=== PATIENT | female | born 1990 | race African-American/Black ===

== ENCOUNTER 2018-10-03 09:03 | Emergency (ER) | payer OTHER ==
[~2018-10-03] VITALS: Ht 165.1 cm; Wt 68.5 kg
[2018-10-03] MEDS ORDERED: prenatal (09:10)
[2018-10-03 09:45] LABS: BASO % 0.3 % (0.0-1.0); EOS # 0.1 10^3/uL (0.0-0.50); HEMOGLOBIN 11.8 g/dl (12.0-15.5); LYMPH # 3.6 10^3/uL (1.5-6.5); LYMPH % 32.5 % (24.0-44.0); MEAN CORPUSCULAR HEMOGLOBIN 30.5 pg (27.0-33.0); MEAN CORPUSCULAR HGB CONC 32.8 g/dl (32.0-36.5); MONO # 0.5 10^3/uL (0.0-0.8); MONO % 4.4 % (0.0-5.0); NEUTROPHILS # 6.7 10^3/uL (1.8-7.7); NEUTROPHILS % 61.5 % (36.0-66.0); PLATELET COUNT, AUTOMATED 261 10^3/uL (150-450); RED BLOOD COUNT 3.87 10^6/uL (4.00-5.40); WHITE BLOOD COUNT 10.9 10^3/uL (4.0-10.0)
[2018-10-03] MEDS ORDERED: ACETAMINOPHEN TAB 650MG DOSE (2X325MG) PO ONE (09:45)
[2018-10-03] MEDS ORDERED: METOCLOPRAMIDE 10 MG TAB PO ONE (09:45)
--- NOTE | 2018-10-03 10:44 | REP ---
FIRST TRIMESTER ULTRASOUND: Real-time sonographic evaluation of the gravid uterus performed utilizing transabdominal and endovaginal technique. The uterus measures 18.4 x 9.8 x 13.8 cm. Gestational sac is seen in the endometrial canal with a mean sac diameter of 8 mm corresponding to an estimated gestational age of 5 weeks 4 days. Yolk sac is seen within the gestational sac. No pole is visualized at this time. The ovaries cannot be visualized. Large fundal fibroid measures 12.6 x 11.0 x 11.2 cm. There is no subchorionic hemorrhage. Recommend followup ultrasound in 10-14 days to document viability. Electronically Signed by Jono Aviles MD 10/03/2018 05:29 P
[2018-10-03 10:52] LABS: BLOOD UREA NITROGEN 9 MG/DL (7-18); CALCIUM LEVEL 9.3 MG/DL (8.5-10.1); CARBON DIOXIDE LEVEL 27 MEQ/L (21-32); CHLORIDE LEVEL 104 MEQ/L (98-107); CREATININE FOR GFR 0.75 MG/DL (0.55-1.30); GLOMERULAR FILTRATION RATE > 60.0 (>60); GLUCOSE, FASTING 91 MG/DL (70-100); HCG, SERUM QUANTITATIVE 7763 MIU/ML; POTASSIUM SERUM 4.1 MEQ/L (3.5-5.1); SODIUM LEVEL 137 MEQ/L (136-145)
[2018-10-03] MEDS ORDERED: REGL10TA6 PO (11:07)
[2018-10-03 11:19] VITALS: BP 98/53
--- NOTE | 2018-10-04 13:26 | ED PDOC ---
Post-Departure Follow-Up ft vicente ob faxed formal report of first trimester us for fu Kimberley Gonzalez MD Oct 04, 2018 13:25
== END 2018-10-03 11:21 | disposition home or self-care (01) ==
LOC: M ED 09:03
DX: Z32.01 Encounter for pregnancy test, result positive (principal); N93.8 Other specified abnormal uterine and vaginal bleeding; Z88.0 Allergy status to penicillin

== ENCOUNTER 2020-05-06 06:05 | Inpatient (IN) | payer OTHER ==
--- NOTE | 2020-05-01 10:49 | HPE ---
HISTORY AND PHYSICAL DATE OF ANTICIPATED ADMISSION: 05/06/2020 HISTORY OF PRESENT ILLNESS: This patient is a 30-year-old 2, para 1, who has had a longstanding history of a fibroid uterus dating back before September 2018, at which time she had a in utero. At that time, the fibroid was 12 x 11 x 11 cm. She has had progressively enlarging fibroid, back in January the fibroid was 14.5 x 11 x 13.1 cm, presently in April it is 18.5 x 11 x 13.1 cm. It is rapidly enlarging causing bladder pressure and frequency, rectal pressure, dyspareunia, discomfort, and dysmenorrhea. After discussion of management including Depot Lupron for shrinkage, but not complete resolution of the fibroid, the patient elected to have definitive surgery in the form of a myomectomy. PHYSICAL EXAMINATION: The rest of the examination is unremarkable. She is normocephalic, atraumatic. Neck with full range of motions. Pupils equal and reactive to light. Distal pulses are symmetric. No evidence of DVT, PE, or superficial phlebitis. Chest is clear bilaterally to the bases with no wheezes or rhonchi. No CVA tenderness. Abdomen soft. Four quadrant bowel sounds were noted. She has this enlarging mass, which is above her umbilicus and has multiple nodularities, which is suggested by the fibroid; although, it is fixed. No rashes, lesions, or pruritus. No arthralgias or myalgias. No complaint of joint pain. No complaint of cough, wheeze, shortness of breath, or dyspnea on exertion. She has no nausea or vomiting. She has urgency. She has frequency. She had difficulty with bowel movements all related to this enlarging fibroid. VITAL SIGNS: Presently, she is 65 inches, 166.2 pounds, temperature 95.8, blood pressure 115/58, pulse is 101. ALLERGIES: PENICILLIN in the form of swelling. MEDICATIONS: Presently taking vitamins and Tylenol on a p.r.n. basis. OB HISTORY: Last Pap smear, which was July 2019, was within normal limits. HPV was negative. Last period 03/28/2019. PLAN AND DISCUSSION: We discussed the risks and benefits of surgery including hemorrhage, infection, perforation, entry into the uterus, requiring section for issues, , uncontrolled bleeding, risk of blood transfusion, and possibly hysterectomy for life threatening bleeding, as well as adhesions postoperatively related to the myomectomy. The patient expressed understanding of the same. We had a 20 minute discussion with examination 30 minutes in total. All questions were answered. The patient signed a consent form. The surgery is booked for 05/06/2020.
[~2020-05-06] VITALS: Ht 165.1 cm; Wt 73.9 kg
[2020-05-06] VITALS (8 sets, daily range): BP systolic 106–121; BP diastolic 59–69
[~2020-05-06 06:05] MED LIST: REGL10TA6 PO; prenatal
--- OUTSIDE RECORDS SUMMARY | 2020-05-06 06:16 | CCD ---
Author Author [facility] [place] [facility] Address Unknown Phone Unavailable Support Name Relationship Address Phone GEN VALDOVINOS Next Of Kin Unknown Unavailable UE Next Of Kin Unknown Unavailable RADHA VALDOVINOS Next Of Kin [address] [place] [address] Re-disclosure Warning The records that you are about to access may contain information from federally-assisted alcohol or drug abuse programs. If such information is present, then the following federally mandated warning applies: This information has been disclosed to you from records protected by federal confidentiality rules (42 CFR part 2). The federal rules prohibit you from making any further disclosure of this information unless further disclosure is expressly permitted by the written consent of the person to whom it pertains or as otherwise permitted by 42 CFR part 2. A general authorization for the release of medical or other information is NOT sufficient for this purpose. The Federal rules restrict any use of the information to criminally investigate or prosecute any alcohol or drug abuse patient.The records that you are about to access may contain highly sensitive health information, the redisclosure of which is protected by Article 27-F of the [facility] Public Health law. If you continue you may have access to information: Regarding HIV / AIDS; Provided by facilities licensed or operated by the [facility] Office of Mental Health; or Provided by the [facility] Office for People With Developmental Disabilities. If such information is present, then the following [facility] mandated warning applies: This information has been disclosed to you from confidential records which are protected by state law. State law prohibits you from making any further disclosure of this information without the specific written consent of the person to whom it pertains, or as otherwise permitted by law. Any unauthorized further disclosure in violation of state law may result in a fine or custodial sentence or both. A general authorization for the release of medical or other information is NOT sufficient authorization for further disc losure. Insurance Providers Payer name Policy type / Coverage type Policy ID Covered alliance party ID Covered alliance party's relationship to villatoro Policy Villatoro Plan Information [facility] [id number] [facility] [id number] [facility] [id number] Spouse [id number]
[2020-05-06] MEDS ORDERED: PRENTAB9 PO (06:33)
[2020-05-06 06:56] LABS: HEMATOCRIT 39.1 % (36.0-47.0); HEMOGLOBIN 12.4 g/dl (12.0-15.5); MEAN CORPUSCULAR HEMOGLOBIN 28.4 pg (27.0-33.0); MEAN CORPUSCULAR HGB CONC 31.7 g/dl (32.0-36.5); MEAN CORPUSCULAR VOLUME 89.7 fl (80.0-96.0); PLATELET COUNT, AUTOMATED 281 10^3/uL (150-450); RED BLOOD COUNT 4.36 10^6/uL (4.00-5.40); WHITE BLOOD COUNT 11.2 10^3/uL (4.0-10.0)
[2020-05-06] MEDS ORDERED: LR 1,000 ML IV ONE (07:00)
[2020-05-06] MEDS ORDERED: ceFAZolin SOD 2 GM in IV 1 EA IV ONE (07:00)
[2020-05-06] MEDS ORDERED: ACETAMINOPHEN 650 MG SUPP PR ONE (07:00)
[2020-05-06] MEDS ORDERED: ACETAMINOPHEN 650 MG SUPP As Ordered ONE (07:14)
[2020-05-06] MEDS ORDERED: BUPIVACAINE HCL 0.5% 30 ML VIAL As Ordered ONE (07:15)
[2020-05-06] MEDS ORDERED: BUPIVACAINE HCL 0.5% 10ML VIAL As Ordered ONE (07:17)
[2020-05-06 07:18] LABS: BLOOD UREA NITROGEN 15 MG/DL (7-18); CALCIUM LEVEL 9.6 MG/DL (8.5-10.1); CARBON DIOXIDE LEVEL 28 MEQ/L (21-32); CHLORIDE LEVEL 103 MEQ/L (98-107); CREATININE FOR GFR 0.72 MG/DL (0.55-1.30); GLOMERULAR FILTRATION RATE > 60.0 (>60); GLUCOSE, FASTING 103 MG/DL (70-100); HCG, SERUM QUANTITATIVE < 1.0 MIU/ML; POTASSIUM SERUM 4.1 MEQ/L (3.5-5.1); SODIUM LEVEL 137 MEQ/L (136-145)
[2020-05-06] MEDS ORDERED: LIDOCAINE 2% 100MG/5ML SDV (FOR ANES.) As Ordered ONE (07:21)
[2020-05-06] MEDS ORDERED: ONDANSETRON 4MG/2ML VIAL As Ordered ONE (07:21)
[2020-05-06] MEDS ORDERED: MIDAZOLAM INJ 2MG/2ML VIAL (J2250 PER 1MG) As Ordered ONE (07:21)
[2020-05-06] MEDS ORDERED: ROCURONIUM BROMIDE 50 MG/5 ML VIAL As Ordered ONE (07:21)
[2020-05-06] MEDS ORDERED: fentaNYL 100 MCG/2 ML INJECTION (J3010) As Ordered ONE (07:21)
[2020-05-06] MEDS ORDERED: METOCLOPRAMIDE INJ 10MG/2ML VIAL (J2765 PER 1) As Ordered ONE (07:21)
[2020-05-06] MEDS ORDERED: propofoL 200 MG/20 ML VIAL As Ordered ONE (07:21)
[2020-05-06] MEDS ORDERED: KETOROLAC 60MG 2ML VIAL As Ordered ONE (09:11)
[2020-05-06] MEDS ORDERED: SUGAMMADEX SODIUM 500 MG/5 ML VIAL (BRIDION) As Ordered ONE (09:11)
[2020-05-06] MEDS ORDERED: dexameTHASONE 4 MG/ML 1ML VIAL (J1100 PER 1MG) As Ordered ONE (09:11)
[2020-05-06] MEDS ORDERED: HYDROmorphone HCL 2 MG/ML 1ML VIAL (J1170) As Ordered ONE (09:53)
[2020-05-06] MEDS ORDERED: oxyCODONE 5MG TAB PO PRN (10:45)
[2020-05-06] MEDS ORDERED: LR 1,000 ML IV SCH ×2 (10:45→11:00)
[2020-05-06] MEDS ORDERED: ONDANSETRON 4MG/2ML VIAL IV PRN ×2 (10:45→11:15)
[2020-05-06] MEDS ORDERED: fentaNYL 100 MCG/2 ML INJECTION (J3010) IV PRN (10:45)
[2020-05-06] MEDS ORDERED: zolPIDEM TARTRATE 5 MG TAB PO PRN (11:15)
[2020-05-06 14:40] LABS: HEMATOCRIT 32.6 % (36.0-47.0); HEMOGLOBIN 10.6 g/dl (12.0-15.5); MEAN CORPUSCULAR HEMOGLOBIN 28.9 pg (27.0-33.0); MEAN CORPUSCULAR HGB CONC 32.5 g/dl (32.0-36.5); MEAN CORPUSCULAR VOLUME 88.8 fl (80.0-96.0); PLATELET COUNT, AUTOMATED 244 10^3/uL (150-450); RED BLOOD COUNT 3.67 10^6/uL (4.00-5.40); WHITE BLOOD COUNT 16.6 10^3/uL (4.0-10.0)
[2020-05-06] MEDS: NORCO, ANEXSIA 5/325MG TABLET (HYDROcodone/ACETAMINOPHEN) PO PRN (14:47)
[2020-05-06] MEDS: ACETAMINOPH W/CODEINE #3 TAB UD PO PRN ×2 (18:56→23:34)
[2020-05-06] MEDS ORDERED: NS 1,000 ML IV SCH (19:00)
[2020-05-07 04:00] VITALS: BP 113/68
[2020-05-07] MEDS: NORCO, ANEXSIA 5/325MG TABLET (HYDROcodone/ACETAMINOPHEN) PO PRN ×2 (04:31→18:14)
[2020-05-07 08:30] VITALS: BP 117/85
[2020-05-07] MEDS: IBUPROFEN 600MG TAB PO PRN ×3 (08:40→22:16)
[2020-05-07 12:00] VITALS: BP 119/65
[2020-05-07 16:00] VITALS: BP 109/64
[2020-05-07 20:00] VITALS: BP 136/73
[2020-05-08] VITALS: BP 101/72
[2020-05-08] MEDS: NORCO, ANEXSIA 5/325MG TABLET (HYDROcodone/ACETAMINOPHEN) PO PRN ×2 (00:12→06:18)
[2020-05-08] MEDS: IBUPROFEN 600MG TAB PO PRN ×2 (03:50→10:40)
[2020-05-08 04:00] VITALS: BP 117/65
[2020-05-08] MEDS ORDERED: HYDR-3715 PO (07:41)
[2020-05-08] MEDS ORDERED: IBUP-1022 PO (07:41)
[2020-05-08 08:30] VITALS: BP 108/61
--- NOTE | 2020-05-08 11:33 | DS.PDOC ---
Discharge Summary General Date of Admission May 06, 2020 at 06:05 Date of Discharge 05/08/2020 Primary Care Physician: Delvis Baltazar MD Attending Physician: Delvis Baltazar MD Discharge Summary PROCEDURES PERFORMED DURING STAY: laparotomy myomectomy ADMITTING DIAGNOSES: 1. .uterine myoma DISCHARGE DIAGNOSES: 1. .post myomectomy COMPLICATIONS/CHIEF COMPLAINT: Fibroid Uterus. HISTORY OF PRESENT ILLNESS enlarging fibroid with cystic degeneration HOSPITAL COURSE: uneventfull DISCHARGE MEDICATIONS: Please see below.in discharge instructions ALLERGIES: Please see below.pcn ? PHYSICAL EXAMINATION ON DISCHARGE: VITAL SIGNS: Please see below. GENERAL: weelno issues HEENT: normal NECK: no jvd CARDIOVASCULAR EXAMINATION: si s2 normal no murmers RESPIRATORY EXAMINATION: clear to bases ABDOMINAL EXAMINATION: soft bowel sounds normal incision clean dry dressing EXTREMITIES: no bruits no dvt no svt SKIN: normal NEUROLOGICAL EXAMINATION: negative PSYCHIATRIC EXAMINATION: no issues LABORATORY DATA: Please see below. IMAGING: PROGNOSIS: good ACTIVITY: [As tolerated]. att DIET: [tali ] DISCHARGE PLAN: incision check 2 weeks ft drum ob 6 week post op discussion control DISPOSITION: . DISCHARGE INSTRUCTIONS: 1. .printed for patient ITEMS TO FOLLOWUP ON ON OUTPATIENT: 1. . DISCHARGE CONDITION: [Stable]. TIME SPENT ON DISCHARGE: Greater than 30 minutes . [facility] Department of Laboratories [place], [place] [address] Edward Antunez MD, Service Girl Surgical Pathology Report Name: PEDRO PABLO VALDOVINOS Unit: [id number] Spec#: [id number] Signout: 05/07/20 Patient Name: PEDRO PABLO VALDOVINOS Unit#: [id number] Spec#: [id number] Page 1 of 1 [facility] Department of Laboratories [place], [place] [address] Edward Antunez MD, Service Girl Surgical Pathology Report Patient Name: PEDRO PABLO VALDOVINOS Unit#: [id number] Spec#: [id number] Page 1 of 1 Patient Name: PEDRO PABLO VALDOVINOS : 1990 Age: 30 Sex: F Acct.#: [id number] Unit #: [id number] Location:[facility] Room:[place] [address] Submitting Doctor.: Delvis Baltazar MD Other Doctors : : : : : Specimen #: [id number] Received Date: 05/06/20 Specimen Date: 05/06/20 Reported Date: 05/07/20 FINAL DIAGNOSIS Uterine mass, myomectomy: Uterine leiomyoma with hyalinization and cystic degeneration. No evidence for malignancy. 05/07/20 - 1421 CLINICAL DIAGNOSIS Fibroid uterus GROSS DESCRIPTION Received fresh labeled uterine mass for frozen section and consists of a 15.0 x 15.0 x 10.0 cm. soft tissue mass weighing 1,200 grams, received at 9:15 AM. Serial sections show homogeneous hummel-red cut surfaces with no grossly apparent necrosis or hemorrhage. Field Service Engineer sections submitted for frozen section in three blocks and reported at 9:45 AM as leiomyoma with cystic degeneration. Additional customer care representative sections submitted in five blocks (A4-A8). -SV Final: Electronically Signed by: LINDSEY PETTY MD 05/07/20 1421 Prelim: Vital Signs/I&Os Vital Signs Date Time Temp Pulse Resp B/P (MAP) Pulse Ox O2 Delivery O2 Flow Rate FiO2 05/08/20 08:30 98.4 87 20 108/61 (77) 98 Room Air 05/06/20 11:20 2 I&O- Last 24 Hours up to 6 AM 05/08/20 06:00 Intake Total 1810 ml Output Total 1200 ml Balance 610 ml Laboratory Data CBC/BMP Item Value Date Time White Blood Count 16.6 10^3/uL H 05/06/20 1427 Red Blood Count 3.67 10^6/uL L 05/06/20 1427 Hemoglobin 10.6 g/dl L 05/06/20 1427 Hematocrit 32.6 % L 05/06/20 1427 Mean Corpuscular Volume 88.8 fl 05/06/20 1427 Mean Corpuscular Hemoglobin 28.9 pg 05/06/20 1427 Mean Corpuscular Hemoglobin Concent 32.5 g/dl 05/06/20 1427 Red Cell Distribution Width 13.3 % 05/06/20 1427 Platelet Count 244 10^3/uL 05/06/20 1427 Nucleated Red Blood Cells % (auto) 0.0 % 05/06/20 1427 White Blood Count 11.2 10^3/uL H 05/06/20 0638 Red Blood Count 4.36 10^6/uL 05/06/20 0638 Hemoglobin 12.4 g/dl 05/06/20 0638 Hematocrit 39.1 % 05/06/20 0638 Mean Corpuscular Volume 89.7 fl 05/06/20 0638 Mean Corpuscular Hemoglobin 28.4 pg 05/06/20 0638 Mean Corpuscular Hemoglobin Concent 31.7 g/dl L 05/06/20 0638 Red Cell Distribution Width 13.2 % 05/06/20 0638 Platelet Count 281 10^3/uL 05/06/20 0638 Nucleated Red Blood Cells % (auto) 0.0 % 05/06/20 0638 Discharge Medications Scheduled PRN Hydrocodone/Acetaminophen (Hydrocodone-Acetamin 5-325 mg) 1 Each Tablet, 1 TAB P O Q6HP PRN for SEVERE PAIN Ibuprofen (Ibuprofen) 600 Mg Tablet, 600 MG PO Q6HP PRN for MODERATE PAIN (PS 5- 7) Allergies Coded Allergies: Penicillins (Verified Adverse Reaction, Intermediate, felt a little " weird", 04/29/20) Delvis Baltazar MD May 08, 2020 10:38
--- NOTE | 2020-05-19 13:57 | RO ---
OPERATIVE NOTE DATE OF OPERATION: 05/06/2020 PREOPERATIVE DIAGNOSIS: POSTOPERATIVE DIAGNOSIS: OPERATION PROPOSED: Laparotomy myomectomy. OPERATION PERFORMED: Laparotomy myomectomy. SURGEON: Delvis Baltazar MD NEW GRAD RN: Jesus Manuel Burnett DO; for retraction, extraction, and visualization without which, the procedure could not be completed. ANESTHESIA: General plus local anesthetic for intraperitoneal procedure. ESTIMATED BLOOD LOSS: Less than 100 mL. DESCRIPTION OF PROCEDURE: After adequate anesthesia, prepped and draped in the lithotripsy position, Cabrera catheter in the bladder draining clear urine. Acetaminophen suppository 1300 mg/rectum. Weighted-speculum in the vagina with a single-tooth tenaculum on the anterior lip of the cervix, the uterine elevator was placed in the endocervical canal. The instruments were then removed except for the uterine elevator and the tenaculum. The patient was put in the supine position, reprepped and draped. A Pfannenstiel skin incision was made two fingerbreadths above the symphysis pubis passing through abdominal layers securing hemostasis. On opening the peritoneal cavity, we noticed this large globular mass, which went from the symphysis pubis to well above the umbilicus approximately 22 cm in length. We had an extremely difficult time in extracting the mass out of the abdominal incision; in spite of us extending the peritoneal extension and in spite of us lateralizing the muscles and even extending the skin incision, we still had significant difficulty in getting that mass out. We tried to use a vacuum in order to extricate the mass, but the suction of the mass to the posterior wall was intense. We then had to use three perforating towel clips into the mass and eventually, we were able to extricate the mass out of the uterus. Once that was performed, it took approximately 22 minutes, we then went ahead and put a Mobius in to isolate the mass. We could feel the rest of the uterus, it seemed to be mostly incorporated at the fundus of the mass very broadly and did not effect the cornu of the tubes. The tubes and the ovaries appeared to be intact. We then went ahead with the exteriorized mass developed a peritoneal surface over the fibroid mass and brought it down to the base. With that done, we then excised off the stalk of the fibroid and were able to, by digital examination and digital movement, actually peel out the fibroid from the uterus. We at no time entered into the cavity of the uterus, it seemed to just stop at the top of the fundal muscle. With that removed, it weighed approximately 1800 grams; it had some necrotic areas in it, it had some suppurative areas in it, and it was sent off to pathology for quick section in order to see if they could establish whether there were any cancerous areas in the myoma. While that was being performed, we closed the gap in the top of the uterus with PDS and we did it in layers interrupted [id number]. Once that was done, we irrigated out finding no evidence of active bleeding in there, and we went ahead and then closed the peritoneum, that was quite extensive [id number] but now is a normalized uterus, using Vicryl and again, there was no evidence of any active bleeding in the closure of that area. We waited for the pathology to come back, and pathology on quick section could not identify any cancerous areas. Therefore, we reviewed the abdomen. The bowel was intact. The ureters were identified. The ovaries and tubes appeared to be normal. The uterus was replaced back in the cavity and then with instrument and pad counts correct, the abdomen was closed with running suture for the peritoneum and same for the fascia, interrupted for the subcutaneous, 3-0 Dexon for the skin, and Marcaine 0.25% 10 mL to the skin. A Mepore dressing was placed. The Cabrera catheter was removed, and the patient was sent to recovery in good condition.
== END 2020-05-08 11:20 | disposition home or self-care (01) | DRG 743 ==
LOC: M OR 06:05 → M PED 12:15
PROVIDERS: ADMIT Obstetrics & Gynecology; ATTEND Obstetrics & Gynecology
PROC: 0UB90ZZ Excision of Uterus, Open Approach (ICD-10-PCS; principal; 2020-05-06 07:30)
DX: D25.9 Leiomyoma of uterus, unspecified (principal); N94.6 Dysmenorrhea, unspecified; Z88.0 Allergy status to penicillin

== ENCOUNTER → 2022-08-25 | Outpatient (REF) | payer OTHER ==
[~2022-08-25] MED LIST changes: +HYDR-3715 PO; +IBUP-1022 PO; +PRENTAB9 PO
== END ==
LOC: M SFHCLERA 11:05
PROVIDERS: ATTEND Student in an Organized Health Care Education/Training Program
DX: Z12.4 Encounter for screening for malignant neoplasm of cervix (principal)

== ENCOUNTER → 2023-02-24 | Outpatient (REF) | payer OTHER ==
[2023-02-24 13:46] LABS: BASO % 0.3 % (0.0-1.0); EOS # 0.1 10^3/uL (0.0-0.5); EOS % 0.4 % (0.0-3.0); HEMATOCRIT 37.5 % (36.0-47.0); HEMOGLOBIN 12.1 g/dl (12.0-15.5); LYMPH # 3.5 10^3/uL (1.5-5.0); LYMPH % 26.7 % (24.0-44.0); MEAN CORPUSCULAR HGB CONC 32.3 g/dl (32.0-36.5); MEAN CORPUSCULAR VOLUME 93.1 fl (80.0-96.0); MONO # 0.6 10^3/uL (0.0-0.8); MONO % 4.2 % (2.0-8.0); NEUTROPHILS % 68.1 % (36.0-66.0); PLATELET COUNT, AUTOMATED 261 10^3/uL (150-450); RED BLOOD COUNT 4.03 10^6/uL (4.00-5.40); WHITE BLOOD COUNT 13.2 10^3/uL (4.0-10.0)
[2023-02-24 13:53] LABS: ALBUMIN 3.6 G/DL (3.2-5.2); ALKALINE PHOSPHATASE 75 U/L (46-116); ALT/SGPT 14 U/L (7.0-40); AST/SGOT 12 U/L (<34); BILIRUBIN,TOTAL 0.3 MG/DL (0.3-1.2); BLOOD UREA NITROGEN 9 MG/DL (9-23); CALCIUM LEVEL 9.7 MG/DL (8.5-10.1); CARBON DIOXIDE LEVEL 26 MMOL/L (20-31); CHLORIDE LEVEL 103 MMOL/L (98-107); CREATININE FOR GFR 0.49 MG/DL (0.55-1.30); GLOMERULAR FILTRATION RATE > 60.0 (>60); GLUCOSE, FASTING 87 MG/DL (60-100); POTASSIUM SERUM 4.1 MMOL/L (3.5-5.1); SODIUM LEVEL 137 MMOL/L (136-145); TOTAL PROTEIN 7.2 G/DL (5.7-8.2)
[2023-02-24 13:55] LABS: THYROID STIMULATING HORMONE 0.914 uIU/ML (0.55-4.78)
[2023-02-24 14:06] LABS: HCG, SERUM QUALITATIVE POSITIVE (NEGATIVE)
== END ==
LOC: M LABWUC 12:26
PROVIDERS: ATTEND Physician Assistant
DX: Z32.01 Encounter for pregnancy test, result positive (principal)

== ENCOUNTER → 2023-04-08 | Outpatient (CLI) | payer OTHER ==
[2023-04-08 18:09] LABS: HEMATOCRIT 35.1 % (36.0-47.0); HEMOGLOBIN 11.5 g/dl (12.0-15.5); MEAN CORPUSCULAR HEMOGLOBIN 30.3 pg (27.0-33.0); MEAN CORPUSCULAR HGB CONC 32.8 g/dl (32.0-36.5); MEAN CORPUSCULAR VOLUME 92.6 fl (80.0-96.0); PLATELET COUNT, AUTOMATED 261 10^3/uL (150-450); RED BLOOD COUNT 3.79 10^6/uL (4.00-5.40); WHITE BLOOD COUNT 16.7 10^3/uL (4.0-10.0)
[2023-04-08 18:55] LABS: HIV 1&2 SCREEN NEGATIVE (NEGATIVE)
[2023-04-08 19:04] LABS: HEPATITIS C VIRUS ABY INDEX 0.02 INDEX (<0.8)
== END ==
LOC: M PLALAB 15:23
PROVIDERS: ATTEND Advanced Practice Midwife
DX: Z34.92 Encounter for supervision of normal pregnancy, unspecified, second trimester (principal)

== ENCOUNTER → 2023-04-14 | Outpatient (CLI) | payer OTHER | LOC: M WHC 14:56 | PROVIDERS: ATTEND Advanced Practice Midwife | DX: O26.842 Uterine size-date discrepancy, second trimester (principal); Z3A.18 18 weeks gestation of pregnancy ==

== ENCOUNTER → 2023-05-11 | Outpatient (CLI) | payer OTHER | LOC: M RAD 14:05 | PROVIDERS: ATTEND Obstetrics & Gynecology | DX: Z34.92 Encounter for supervision of normal pregnancy, unspecified, second trimester (principal); Z3A.20 20 weeks gestation of pregnancy ==

== ENCOUNTER → 2023-06-09 | Outpatient (CLI) | payer OTHER ==
[2023-06-09 16:03] LABS: HEMATOCRIT 33.7 % (36.0-47.0); HEMOGLOBIN 10.7 g/dl (12.0-15.5); MEAN CORPUSCULAR HEMOGLOBIN 29.3 pg (27.0-33.0); MEAN CORPUSCULAR HGB CONC 31.8 g/dl (32.0-36.5); MEAN CORPUSCULAR VOLUME 92.3 fl (80.0-96.0); PLATELET COUNT, AUTOMATED 246 10^3/uL (150-450); RED BLOOD COUNT 3.65 10^6/uL (4.00-5.40); WHITE BLOOD COUNT 13.8 10^3/uL (4.0-10.0)
[2023-06-09 17:11] LABS: GC DNA AMPLIFICATION NEGATIVE (NEGATIVE)
== END ==
LOC: M PLALAB 12:57
PROVIDERS: ATTEND Specialist
DX: Z34.82 Encounter for supervision of other normal pregnancy, second trimester (principal)

== ENCOUNTER → 2023-09-02 | Outpatient (CLI) | payer OTHER | LOC: M WHC 13:22 | PROVIDERS: ATTEND Advanced Practice Midwife | DX: Z34.83 Encounter for supervision of other normal pregnancy, third trimester (principal); Z3A.36 36 weeks gestation of pregnancy ==

== ENCOUNTER → 2023-09-05 | Outpatient (REF) | payer OTHER | LOC: M SFHCWAGY 12:49 | PROVIDERS: ATTEND Specialist | DX: Z34.83 Encounter for supervision of other normal pregnancy, third trimester (principal); Z36.85 Encounter for antenatal screening for Streptococcus B ==

== ENCOUNTER 2023-09-10 10:33 | Inpatient (IN) | payer OTHER ==
[~2023-09-10] VITALS: Ht 162.6 cm; Wt 89.0 kg
[2023-09-10] VITALS (27 sets, daily range): BP systolic 98–185; BP diastolic 55–124; O2SAT 100
[2023-09-10] MEDS ORDERED: HOME MED LIST COMPLETE! XX SCH (11:00)
[2023-09-10] MEDS ORDERED: TRANEXAMIC ACID INJection 1,000 MG in NS 100 ML IV PRN (11:20)
[2023-09-10] MEDS ORDERED: CARBOPROST TROMETHAMINE 250 MCG/ML AMP IM PRN (11:20)
[2023-09-10] MEDS ORDERED: OXYTOCIN DRIP 30 UNITS in IV 1 EA IV PRN (11:20)
[2023-09-10] MEDS ORDERED: METHYLERGONOVINE MALEATE 0.2MG/ML 1ML VIAL IM PRN (11:20)
[2023-09-10] MEDS: LACTATED RINGER'S 1000 ML IV STA (11:33)
[2023-09-10 11:48] LABS: HEMATOCRIT 33.1 % (36.0-47.0); HEMOGLOBIN 10.8 g/dl (12.0-15.5); MEAN CORPUSCULAR HEMOGLOBIN 27.6 pg (27.0-33.0); MEAN CORPUSCULAR HGB CONC 32.6 g/dl (32.0-36.5); MEAN CORPUSCULAR VOLUME 84.7 fl (80.0-96.0); PLATELET COUNT, AUTOMATED 227 10^3/uL (150-450); RED BLOOD COUNT 3.91 10^6/uL (4.00-5.40); WHITE BLOOD COUNT 12.1 10^3/uL (4.0-10.0)
[2023-09-10] MEDS ORDERED: EPIDURAL/PCA KEYS XX PRN (12:15)
[2023-09-10] MEDS ORDERED: ePHEDrine SULFATE 25 MG/5 ML(5MG/ML) SYRINGE IVP PRN (12:15)
[2023-09-10] MEDS ORDERED: diphenhydrAMINE 50MG/ML VIAL IV PRN (12:15)
[2023-09-10] MEDS ORDERED: NALOXONE INJ 0.4MG/1ML VIAL IV PRN (12:15)
[2023-09-10] MEDS ORDERED: ONDANSETRON 4MG 2ML VIAL IV PRN (12:15)
[2023-09-10] MEDS ORDERED: LR 500 ML IV PRN (12:15)
[2023-09-10 12:45] LABS: HEPATITIS C VIRUS ABY INDEX < 0.02 INDEX (<0.8)
[2023-09-10] MEDS: FENTANYL/ROPIVACAINE/NACL BAG 100 ML EPIDURAL SCH (12:48)
[2023-09-10] MEDS: LR 1,000 ML IV SCH (13:07)
[2023-09-10 14:38] LABS: CORD GAS ABE V -5.9; CORD GAS HCO3 V 20.9 MMOL/L; CORD GAS O2 SAT V 80.2 %; CORD GAS PCO2 V 45.4 mmHg; CORD GAS PH V 7.281 UNITS; CORD GAS PO2 V 38.5 mmHg; CORD GAS SBC V 19.3 MMOL/L; CORD GAS TCO2 V 22.3 MMOL/L
[2023-09-10 14:40] LABS: CORD GAS ABE A -10.3; CORD GAS HCO3 A 19.8 MMOL/L; CORD GAS O2 SAT A 52.6 %; CORD GAS PCO2 A 60.8 mmHg; CORD GAS PH A 7.13 UNITS; CORD GAS PO2 A 25.7 mmHg; CORD GAS SBC A 15.5 MMOL/L; CORD GAS TCO2 A 21.6 MMOL/L
[2023-09-10] MEDS: OXYTOCIN DRIP 30 UNITS in IV 1 EA IV PRN (14:40)
[2023-09-10] MEDS ORDERED: ACETAMINOPHEN 500 MG TAB PO PRN (15:05)
[2023-09-10] MEDS ORDERED: IBUPROFEN 800 MG TAB PO PRN (15:05)
[2023-09-10] MEDS ORDERED: OXYTOCIN DRIP 30 UNITS in IV 1 EA IV SCH (15:05)
[2023-09-10] MEDS ORDERED: DIBUCAINE 1% OINTMENT 30GM TOP PRN (15:05)
[2023-09-10] MEDS ORDERED: RHO(D) IMMUNE GLOBULIN/MALTOSE 500MCG(2500IU)/2.2ML VIAL (WINRHO) IM SCH (15:05)
[2023-09-10] MEDS ORDERED: DOCUSATE SODIUM 100MG CAPSULE PO PRN (15:05)
[2023-09-10] MEDS ORDERED: METHYLERGONOVINE MALEATE 0.2 MG TAB PO PRN (15:05)
[2023-09-10] MEDS ORDERED: MOM 30ML SUSPENSION UDC PO PRN (15:05)
[2023-09-10] MEDS ORDERED: ANUSOL HC CREAM 30GM TOP PRN (15:05)
[2023-09-10] MEDS ORDERED: CALCIUM CARBONATE 500 MG CHEW U/D PO PRN (15:05)
[2023-09-11 05:42] VITALS: BP 112/58; O2SAT 99
[2023-09-11] MEDS: PRENATAL VITAMINS CHEWABLE TABLET PO SCH (08:49)
[2023-09-11] MEDS: ACETAMINOPHEN TAB 650MG DOSE (2X325MG) PO PRN (16:28)
[2023-09-11 18:00] VITALS: BP 115/64; O2SAT 100
[2023-09-11] MEDS: IBUPROFEN 600MG TAB PO PRN (19:47)
[2023-09-12 05:31] VITALS: BP 121/60; O2SAT 100
[2023-09-12] MEDS ORDERED: MEASLES,MUMPS,RUBELLA VACCINE INJ (MMR-II) SC.IMMUN ONE (09:00)
[2023-09-12] MEDS ORDERED: ACET-683 PO (11:38)
[2023-09-12] MEDS ORDERED: IBUP80TA PO (11:38)
== END 2023-09-12 12:32 | disposition home or self-care (01) | DRG 807 ==
LOC: M LDO 10:33 → M LDI 10:58 → M OBS 17:03
PROVIDERS: ADMIT Obstetrics & Gynecology; ATTEND Obstetrics & Gynecology
PROC: 10E0XZZ Delivery of Products of Conception, External Approach (ICD-10-PCS; principal; 2023-09-10)
DX: O69.1XX0 Labor and delivery complicated by cord around neck, with compression, not applicable or unspecified (principal); Z37.0 Single live birth; Z3A.37 37 weeks gestation of pregnancy

== ENCOUNTER → 2024-01-16 | Outpatient (REF) | payer OTHER ==
[~2024-01-16] MED LIST changes: +ACET-683 PO; +IBUP80TA PO
[2024-01-18 16:37] LABS: HPV APTIMA Not Detected (Not Detected)
== END ==
LOC: M PLALAB 10:33
PROVIDERS: ATTEND Obstetrics & Gynecology
DX: Z01.419 Encounter for gynecological examination (general) (routine) without abnormal findings (principal)